=== PATIENT | female | born 1945 | race Caucasian/White ===

== ENCOUNTER → 2019-02-28 | Outpatient (CLI) | payer MEDICARE ==
--- NOTE | 2019-02-28 08:52 | US ---
EXAMINATION TYPE: US pelvic limited DATE OF EXAM: 02/28/2019 COMPARISON: NONE CLINICAL HISTORY: B37.49 CANDIDURIA. Total hysterectomy x >20 years ago, frequent UTI's TECHNIQUE: Transabdominal (TA). Transabdominal sonographic images of the pelvis were acquired. Date of LMP: Total hysterectomy EXAM MEASUREMENTS: 1. Uterus: Surgically absent 2. Endometrium: Surgically absent 3. Right Ovary: Surgically absent 4. Left Ovary: Surgically absent 5. Bilateral Adnexa: wnl, no free fluid or prominent masses visualized 6. Posterior cul-de-sac: no free fluid Bladder: Partially distended. In left inferior bladder, echogenic focus seen adjacent to wall with s hadow - 0.7 x 0.9 cm. Patient turned LLD- no movement was seen but visualization was limited. - Left jet seen IMPRESSION: 1. Urinary bladder calculus measuring 9 mm, that can be sequela of chronic urinary tract infection. 2. Surgical absence of the uterus and ovaries.
--- NOTE | 2019-02-28 09:08 | US ---
EXAMINATION TYPE: US abdomen complete DATE OF EXAM: 02/28/2019 COMPARISON: NONE CLINICAL HISTORY: B37.49 CANDIDURIA. Frequent UTI EXAM MEASUREMENTS: Liver Length: 17.3 cm Gallbladder Wall: 0.1 cm CBD: 0.4 cm CHD: 0.4 cm Spleen: 9.4 cm Right Kidney: 11.9 x 6.3 x 5.6 cm Left Kidney: 11.1 x 4.8 x 5.5 cm Pancreas: Unremarkable Liver: Upper limits of normal in size Gallbladder: Mobile echogenic foci with shadow, largest - 1.8 cm. Length- 10.6 cm= appearing enlarg ed Evidence for sonographic Zhang's sign: neg CBD: wnl CHD: wnl Spleen: wnl Right Kidney: cystic appearing lesion seen in upper pole = 2.3 x 2.4 x 1.4 cm Left Kidney: cystic appearing mid medial cystic appearing lesion seen = 1.3 x 1.2 x 0.9 cm Upper IVC: wnl Abd Aorta: distal aortic dilation seen - 2.7 x 2.7 x 2.4 cm The liver is homogenous. The intrahepatic portion of the IVC and proximal abdominal aorta are within normal limits. Common bile duct is unremarkable. The visualized portions of the pancreas are homoge nous. The spleen is unremarkable. Kidneys are symmetric and free of hydronephrosis. IMPRESSION: 1. Saccular distal abdominal aortic ectasia and nearly meeting criteria for aneurysm measuring up to 2.7 cm. 2. Cholelithiasis without sonographic evidence of acute cholecystitis. 3. No hydronephrosis or nephrolithiasis. Simple appearing right renal cyst. Probable smaller left jarek al cyst. 4. Upper limits of normal size of the liver.
== END | disposition home or self-care (01) ==
LOC: RADUSWWP 06:58
PROVIDERS: ATTEND Internal Medicine Infectious Disease
DX: K80.20 Calculus of gallbladder without cholecystitis without obstruction (principal); N21.0 Calculus in bladder; I77.811 Abdominal aortic ectasia; Z90.710 Acquired absence of both cervix and uterus; Z90.721 Acquired absence of ovaries, unilateral
CPT/HCPCS: 76700; 76857

== ENCOUNTER → 2020-03-13 | Outpatient (CLI) | payer MEDICARE ==
--- NOTE | 2020-03-13 15:03 | CTL ---
EXAMINATION TYPE: CT Low Dose Lung DATE OF EXAM ORDERED: 03/13/2020 COMPARISON: None HISTORY: . Low Dose CT Lung Screening CT DLP: 80.[address] CTDI: 2.4 mGy IV CONTRAST USED: None. SCREENING VISIT: First visit COMPARISON: None. TECHNIQUE: Low dose computed tomography scan was performed through the chest at 1 millimeter thick se ctions and reconstructed images in the coronal plane at [address] DIAGNOSTIC QUALITY: Satisfactory FINDINGS: LUNG NODULES: Not presentLeft lung: no nodules identified.Right lung: no nodules identified. LUNGS: COPD: Severity: Moderate Fibrosis: Severity: Mild Lymph nodes: None Other findings: None RIGHT PLEURAL SPACE: Effusion: None Calcification: None Thickening: None Pneumothorax: None LEFT PLEURAL SPACE: Effusion: None Calcification: None Thickening: None Pneumothorax: None HEART: Heart Size: Mildly enlarged Coronary calcification: Mild Pericardial effusion: None OTHER FINDINGS: Upper abdomen: No significant abnormality Bony thorax: Degenerative changes Supraclavicular region: No significant abnormalityOther: No significant abnormalityI IMPRESSION: No evidence of pulmonary FOLLOW UP CT CHEST RECOMMENDATION: Follow-up screening in one year CT LUNG RAD: LUNG RAD CATEGORY negative category 1
== END | disposition home or self-care (01) ==
LOC: RADCTMAIN 12:40
PROVIDERS: ATTEND Family Medicine
DX: Z12.2 Encounter for screening for malignant neoplasm of respiratory organs (principal); F17.210 Nicotine dependence, cigarettes, uncomplicated

== ENCOUNTER 2020-05-03 17:05 | Emergency (ER) | payer MEDICARE ==
[2020-05-03 17:13] VITALS: PULSE 80
[2020-05-03] MEDS ORDERED: MORPHINE SULFATE 4 MG/ML SYRINGE IM STA (17:39)
--- NOTE | 2020-05-03 18:14 | XR ---
EXAMINATION TYPE: XR elbow limited RT DATE OF EXAM: 05/03/2020 COMPARISON: NONE HISTORY: Pain TECHNIQUE: 2 views FINDINGS: There is no sign of fracture nor dislocation. Joint spaces are normal. There is no sign of elbow joint effusion. IMPRESSION: Negative right elbow exam. No fracture.
--- NOTE | 2020-05-03 18:18 | XR ---
EXAMINATION TYPE: XR shoulder complete RT DATE OF EXAM: 05/03/2020 COMPARISON: NONE HISTORY: Shoulder pain TECHNIQUE: 3 views FINDINGS: There is an acute oblique fracture of the right humeral neck. There is no dislocation. Ther e is nondisplaced chip fracture of the greater tuberosity. There is 13 mm chip fracture of the articu lar surface of the inferior humeral head. The scapula appears intact. AC joint is intact. IMPRESSION: Oblique comminuted fracture of the humeral neck and also intra-articular chip fracture of the humeral head. There is some impaction of the fragments.
--- NOTE | 2020-05-03 18:20 | XR ---
EXAMINATION TYPE: XR humerus RT DATE OF EXAM: 05/03/2020 COMPARISON: NONE HISTORY: Fall. Pain. TECHNIQUE: 2 views FINDINGS: There is oblique fracture proximal shaft of the humerus extending up to the humeral neck. T here is also transverse fracture with impaction of the humeral neck. There is no dislocation. There i s 1.5 cm intra-articular chip fracture of the medial inferior humeral head. Elbow joint is not well s een. IMPRESSION: Comminuted fracture of the proximal humerus. No dislocation. Overall no significant displ acement of the fragments.
[2020-05-03 18:21] VITALS: RESP 16
--- NOTE | 2020-05-03 18:23 | ED ---
Upper Extremity HPI - General Chief Complaint: Extremity Injury, Upper Stated Complaint: fall, rt shoulder pain Time Seen by Provider: 05/03/20 17:21 Source: patient Mode of arrival: wheelchair Limitations: no limitations - History of Present Illness Initial Comments: Patient is a 74-year-old female presenting to emergency Department with complaints of right arm pain after she fell approximately 5 hours prior to arrival. Patient states she was near the top of her stairs when she tripped on her nightgown and fell forward landing mostly on the right side of her body. Patient is complaining of right upper arm pain as well as some mild right hip pain. Patient is able to ambulate. She denies any previous history of surgeries or injuries to her right upper or lower extremity. Patient denies hitting her head, she denies having a headache. She denies any neck pain, abdominal pain, left lower/upper extremity pain. She denies any chest pain or shortness of breath. She has no further complaints at this time. - Related Data Previous Rx's Medication Instructions Recorded Hydrocodone/Acetaminophen [[place] 1 tab PO Q6HR PRN #10 tab 05/03/20 5-325] Allergies Allergy/AdvReac Type Severity Reaction Status Date / Time codeine Allergy Nausea & Verified 05/03/20 17:07 Vomiting Review of Systems ROS Statement: Those systems with pertinent positive or pertinent negative responses have been documented in the HPI. ROS Other: All systems not noted in ROS Statement are negative. Past Medical History Past Medical History: Heart Failure, COPD, Diabetes Mellitus, Hyperlipidemia, Hypertension History of Any Multi-Drug Resistant Organisms: ESBL Date of last positivie culture/infection: 03/18/20 ESBL E.COLI MDRO Source:: URINE Past Surgical History: Coronary Bypass/CABG, Orthopedic Surgery General Exam - General Exam Comments Initial Comments: GENERAL: Patient is well-developed and well-nourished. Patient is nontoxic and in no acute distress, does appear uncomfortable secondary to right arm pain. HEAD: Atraumatic, normocephalic. There is no hematoma. EYES: Pupils equal round and reactive to light, extraocular movements intact, sclera anicteric, conjunctiva are normal. Eyelids were unremarkable. ENT: TMs normal, nares patent, oropharynx clear without exudates. Moist mucous membranes. NECK: Normal range of motion, supple without lymphadenopathy or JVD. LUNGS: Unlabored respirations. Breath sounds clear to auscultation bilaterally and equal. No wheezes rales or rhonchi. HEART: Regular rate and rhythm without murmurs, rubs or gallops. ABDOMEN: Soft, nontender, normoactive bowel sounds. No guarding, no rebound. No masses appreciated. : Deferred MUSCULOSKELETAL: Patient has pain with palpation of her right upper arm, patient is guarding the arm, not able to range the joint. She is neurovascular intact. No pain to palpation of the right hand, right wrist, right forearm. Patient has no pain to palpation of the hips, normal hip range of motion, bilaterally. No clubbing or cyanosis. NEUROLOGICAL: Patient is alert and oriented x 3. Motor and sensory are also intact. Cranial nerves II through XII grossly intact. Symmetrical smile. Normal speech, normal gait. PSYCH: Normal mood, normal affect. SKIN: Warm, Dry, normal turgor, no rashes or lesions noted. Limitations: no limitations Course Vital Signs 05/03/20 05/03/20 05/03/20 17:07 18:20 19:05 Temperature 98.4 F 97.9 F Pulse Rate 80 Respiratory 20 16 16 Rate Blood Pressure 95/62 105/52 O2 Sat by Pulse 93 L 98 Oximetry Procedures - Orthopedic Splinting/Casting Injury #1 Side: right Upper Extremity Injury Location: shoulder, short arm Upper Extremity Immobilizer: sling/shoulder immobilizer, sugar tong splint, Yong wrap, synthetic pre-padded splint Medical Decision Making - Medical Decision Making Patient is a 74-year-old female here after she fell forward and is complaining of right upper arm pain. She did not hit her head, no other findings on exam. Patient is able to ambulate. X-rays reveal a comminuted fracture of the proximal humerus, no dislocation, overall no snuff Displacement of the fragments. Patient was placed in a splint and sling and will follow up with orthopedics. She was given prescription for pain medication. She is comfortable at this time. She is in agreement with this plan of care. She is stable for discharge. Return parameters were discussed with the patient and she verbalized understanding. Case discussed with Dr. Boss. Disposition Clinical Impression: Closed fracture of right proximal humerus, Fall Disposition: HOME SELF-CARE Condition: Stable Instructions (If sedation given, give patient instructions): Arm Fracture in Adults (ED) Additional Instructions: Please return to the Emergency Department if symptoms worsen or any other concerns. Keep splint in place until follow-up with orthopedics. Follow-up with orthopedics as discussed. May continue with prescribed pain medicine. Apply ice to the area as well. Prescriptions: Hydrocodone/Acetaminophen [[place] 5-325] 1 tab PO Q6HR PRN #10 tab PRN Reason: Pain Is patient prescribed a controlled substance at d/c from ED?: No Referrals: Michelle Kee MD [Primary Care Provider] - 1-2 days Shaji Asencio DO [Doctor of Osteopathic Medicine] - 1-2 days
[2020-05-03] MEDS ORDERED: HYDROcodone/APAP 5-325MG 1 EACH TAB PO STA (18:43)
[2020-05-03] MEDS ORDERED: traMADol 50 MG STARTER PACK 3 TAB BTL PO STA (18:43)
[2020-05-03 19:20] VITALS: BP 105/52; TEMP 97.9
== END 2020-05-03 19:05 | disposition home or self-care (01) ==
LOC: EC 17:05
DX: S42.201A Unspecified fracture of upper end of right humerus, initial encounter for closed fracture (principal); Z88.5 Allergy status to narcotic agent; W01.0XXA Fall on same level from slipping, tripping and stumbling without subsequent striking against object, initial encounter
CPT/HCPCS: 73030; 73060; 73070; 99283; 29125; 96372; J2270

== ENCOUNTER → 2020-05-27 | Day surgery (SDC) | payer MEDICARE ==
[~2020-05-27] MED LIST: MEROPENEM 1 GM in SODIUM CHLORIDE 0.9% 100 ML IVPB ONE
== END ==
LOC: CATHCVL 08:44
PROVIDERS: ATTEND Nurse Practitioner
DX: N30.20 Other chronic cystitis without hematuria (principal)
CPT/HCPCS: 36410; 76937; C1751; J2185

== ENCOUNTER 2020-05-29 13:12 | Emergency (ER) | payer MEDICARE ==
[2020-05-29 13:18] VITALS: BP 120/72; PULSE 81; RESP 20; TEMP 98.4
--- NOTE | 2020-05-29 13:47 | ED ---
General Adult HPI - General Chief complaint: Recheck/Abnormal Lab/Rx Stated complaint: Port Complications Time Seen by Provider: 05/29/20 13:15 Source: patient, RN notes reviewed, old records reviewed Mode of arrival: wheelchair Limitations: no limitations - History of Present Illness Initial comments: This is a 74-year-old female presents emergency Department because her midline catheter is not flowing. Patient states she has a catheter placed 2 days ago because she was given antibiotics at home. Patient states she had given herself 2 doses of antibiotics but both times it was very difficult to get the catheter to flow. Patient denies any arm swelling any arm pain or any arm redness. He has no symptoms. - Related Data Previous Rx's Medication Instructions Recorded Hydrocodone/Acetaminophen [[place] 1 tab PO Q6HR PRN #10 tab 05/03/20 5-325] Allergies Allergy/AdvReac Type Severity Reaction Status Date / Time codeine Allergy Nausea & Verified 05/29/20 13:17 Vomiting Review of Systems ROS Statement: Those systems with pertinent positive or pertinent negative responses have been documented in the HPI. ROS Other: All systems not noted in ROS Statement are negative. Past Medical History Past Medical History: Heart Failure, COPD, Diabetes Mellitus, Hyperlipidemia, Hypertension Additional Past Medical History / Comment(s): UTI History of Any Multi-Drug Resistant Organisms: ESBL Date of last positivie culture/infection: 03/18/20 ESBL E.COLI MDRO Source:: URINE Past Surgical History: Coronary Bypass/CABG, Orthopedic Surgery Past Psychological History: No Psychological Hx Reported Smoking Status: Current every day smoker Past Alcohol Use History: None Reported Past Drug Use History: None Reported General Exam - General Exam Comments Initial Comments: GENERAL Patient is well-developed and well-nourished. Patient is in no acute distress EYES Patient's pupils are equal and round. Extraocular motion is intact SKIN Unremarkable NEURO The patient is alert and oriented 3 PYSCH Patient has normal interpersonal interactions. MUSCULOSKELETAL Patient arm is not swollen there is no tenderness is no redness. Limitations: no limitations Course Vital Signs 05/29/20 13:13 Temperature 98.4 F Pulse Rate 81 Respiratory 20 Rate Blood Pressure 120/72 O2 Sat by Pulse 95 Oximetry Medical Decision Making - Medical Decision Making Patient's midline catheter was not flowing so it was replaced in the emergency department. Disposition Clinical Impression: Displacement of peripheral intravenous catheter Disposition: HOME SELF-CARE Condition: Good Additional Instructions: Patient is to return for any further problems. Is patient prescribed a controlled substance at d/c from ED?: No Referrals: Michelle Kee MD [Primary Care Provider] - 1-2 days Time of Disposition: 14:42
[2020-05-29] MEDS ORDERED: ALTEPLASE 2 MG VIAL (CATHFLO) IV STA (13:49)
== END 2020-05-29 14:49 | disposition home or self-care (01) ==
LOC: EC 13:12
DX: T82.524A Displacement of infusion catheter, initial encounter (principal); F17.200 Nicotine dependence, unspecified, uncomplicated; Z88.6 Allergy status to analgesic agent; Z95.1 Presence of aortocoronary bypass graft
CPT/HCPCS: 99283 ×2; 96374 ×2; 36569 ×2; 36410; 76937; C1751

== ENCOUNTER → 2020-06-19 | Outpatient (CLI) | payer MEDICARE ==
--- NOTE | 2020-06-19 14:43 | US ---
EXAMINATION TYPE: US venous doppler duplex LE DATE OF EXAM: 06/19/2020 2:15 PM COMPARISON: NONE CLINICAL HISTORY: I82.90 DVT,R60.0 EDEMA. Feet swelling x 5 to 6 weeks SIDE PERFORMED: Bilateral TECHNIQUE: The lower extremity deep venous system is examined utilizing real time linear array sonog [place] with graded compression, doppler sonography and color-flow sonography. VESSELS IMAGED: External Iliac Vein (EIV) Common Femoral Vein Deep Femoral Vein Greater Saphenous Vein * Femoral Vein Popliteal Vein Small Saphenous Vein * Proximal Calf Veins (* superficial vessels) Right Leg: Appears negative for DVT Left Leg: Appears negative for DVT IMPRESSION: 1. Bilateral lower extremity ultrasound negative for deep venous thrombosis
== END | disposition home or self-care (01) ==
LOC: RADUSWWP 13:52
PROVIDERS: ATTEND Podiatrist Foot & Ankle Surgery
DX: I82.90 Acute embolism and thrombosis of unspecified vein (principal); R60.0 Localized edema
CPT/HCPCS: 93970

== ENCOUNTER → 2021-03-24 | Outpatient (CLI) | payer MEDICARE ==
--- NOTE | 2021-03-24 14:36 | CTL ---
EXAMINATION TYPE: CT Low Dose Lung DATE OF EXAM ORDERED: 03/24/2021 HISTORY: . Lung cancer screening CT DLP: [address] CTDI: 2.4 mGy Automated exposure control for dose reduction was used. SCREENING VISIT: Follow-up COMPARISON: 03/13/2020 TECHNIQUE: Low dose computed tomography scan was performed through the chest at 1 mm thick sections a nd reconstructed images in the coronal plane at [address] DIAGNOSTIC QUALITY: Satisfactory FINDINGS: LUNG NODULES: Present, detailed below: 1. There is a 0.4 cm peripheral nodule in the right lateral lung apex. Series 4 image 56. 2. There is a 0.4 cm nodule anterior right upper lobe. Series 4 image 57 3. There is a 0.3 cm peripheral nodule right upper lobe. Series 4 image 59. LUNGS: COPD: Severity: None Fibrosis: Severity: None Lymph nodes: No enlarged lymph nodes Other findings: The ascending thoracic aorta at the main pulmonary artery is 3.2 cm. The main pulmona ry artery is markedly dilated at 5.4 cm. Correlate for pulmonary hypertension. RIGHT PLEURAL SPACE: Effusion: None Calcification: None Thickening: None Pneumothorax: None LEFT PLEURAL SPACE: Effusion: None Calcification: None Thickening: None Pneumothorax: None HEART: Heart Size: Normal Coronary calcification: Moderate Pericardial effusion: None OTHER FINDINGS: Upper abdomen: Normal Bony thorax: Normal Supraclavicular region: Normal Other: None IMPRESSION: 1. Small peripheral right upper lobe nodules. Follow-up study in one year recommended. 2. Correlate for pulmonary hypertension FOLLOW UP CT CHEST RECOMMENDATION: Follow-up low-dose CT chest one year CT LUNG RAD: 2
== END | disposition home or self-care (01) ==
LOC: RADCTMAIN 13:44
PROVIDERS: ATTEND Family Medicine
DX: Z12.2 Encounter for screening for malignant neoplasm of respiratory organs (principal); R91.1 Solitary pulmonary nodule; Z87.891 Personal history of nicotine dependence
CPT/HCPCS: 71271

== ENCOUNTER → 2024-12-26 | Outpatient (CLI) | payer MEDICARE ==
[2024-12-26 16:50] LABS: African American GFR (CKD) >90 (>60 ml/min/1.73 sqM); Blood Urea Nitrogen 26 mg/dL (7-17); Non-African American GFR(CKD) 90 (>60 ml/min/1.73 sqM)
--- NOTE | 2024-12-26 19:48 | CT ---
EXAMINATION TYPE: CT chest wo/w con CT DLP: 845.3 mGycm, Automated exposure control for dose reduction was used. DATE OF EXAM: 12/26/2024 5:49 PM COMPARISON: CT low-dose lung 03/24/2021, 03/13/2020 CLINICAL INDICATION:Female, 79 years old with history of R91.8 ABN LUNG FIND J44.9 COPD; PHH, Abnorma l lung finding, pt stated fluid in right lung. TECHNIQUE: Multiple axial images were obtained through the chest before and after the uneventful admi nistration of 100 cc of Isovue-300 intravenously . Coronal and sagittal reformats reviewed. FINDINGS: LUNGS/ PLEURA: No pleural effusion, pneumothorax, or focal consolidation. Linear atelectasis along th e left major fissure. No suspicious pulmonary nodule or mass. Previously seen nodules are not visual ized. Mild centrilobular emphysematous changes. AIRWAY: Patent and unremarkable.. HEART: Cardiomegaly is demonstrated.No pericardial effusion. Moderate coronary artery calcifications present. Dense mitral annulus calcifications. Post-CABG changes. MEDIASTINUM: No evidence of adenopathy. VASCULATURE: No thoracic aortic aneurysm. Infrarenal abdominal aortic fusiform aneurysm measuring up to 4.0 cm. Moderate atherosclerotic calcification of the aorta and its branches. High-grade stenosis suggested at the origin of the celiac axis. Mild stenosis of the origin of the right brachiocephalic artery. Dilated main pulmonary artery measuring up to 5.5 cm. No evidence for central pulmonary embo lism. MUSCULOSKELETAL: No acute osseous abnormalities. Sternotomy wires. Probable right proximal humerus he aled fracture deformity. Distal right clavicle fracture to heal deformity. Scoliotic curvature of the thoracolumbar spine. Degenerative disc disease of the lumbar spine. SOFT TISSUES/LYMPH NODES: Unremarkable. LOWER NECK: No significant findings. UPPER ABDOMEN: Distal colonic diverticulosis. Right renal 2.5 cm simple cyst. Left renal simple 1.4 c m cyst. IMPRESSION: 1. No acute thoracic process. 2. No suspicious pulmonary nodules or mass. No pleural effusion. 3. Mild emphysematous changes. 4. Infrarenal abdominal aortic aneurysm measuring up to 4.0 cm. 5. Dilated main pulmonary artery suggesting pulmonary arterial hypertension. 6. Colonic diverticulosis without evidence for acute diverticulitis. 7. Cardiomegaly with post-CABG changes. [facility], , 12/26/2024 7:46 PM
== END | disposition home or self-care (01) ==
LOC: RADCTMAIN 15:45
PROVIDERS: ATTEND Family Medicine
DX: I71.43 Infrarenal abdominal aortic aneurysm, without rupture (principal); K57.30 Diverticulosis of large intestine without perforation or abscess without bleeding; I51.7 Cardiomegaly; J43.9 Emphysema, unspecified; R91.8 Other nonspecific abnormal finding of lung field; J44.9 Chronic obstructive pulmonary disease, unspecified; I25.810 Atherosclerosis of coronary artery bypass graft(s) without angina pectoris; R60.9 Edema, unspecified; Z95.1 Presence of aortocoronary bypass graft
CPT/HCPCS: 82565; 84520; 71270; 36415; Q9967